=== PATIENT | male | born 1950 | race Caucasian/White ===

== ENCOUNTER 2018-11-11 04:50 | Inpatient (IN) ==
[2018-11-05 15:41] LABS: Appearance,Urine CLEAR; Bilirubin,Urine NEG (NEG); Color,Urine YELLOW; Glucose,Urine (UA) NEGATIVE (NEG); Leukocyte Esterase,Urine NEG /uL (NEG); Protein,Urine NEG (NEG); Specific Gravity,Urine 1.018 (1.000-1.035); Urine Blood NEG mg/dL (<0.03); Urobilinogen,Urine NEG (NEG)
[2018-11-05 18:34] LABS: Basophils # (Auto) 0.1 K/mcL (0.0-0.3); Basophils % (Auto) 0.8 % (0.0-2.0); Eosinophils # (Auto) 0.1 K/mcL (0.0-0.7); Eosinophils % (Auto) 1.4 % (0.0-7.0); Granulocytes % (Auto) 64.8 % (38.0-78.0); Lymphocytes # (Auto) 1.6 K/mcL (1.5-4.8); Lymphocytes % (Auto) 22.7 % (15.5-49.0); Mean Cell Volume 86.4 fL (80.0-100.0); Mean Corpuscular HGB Conc 32.3 g/dL (31.0-36.0); Monocytes # (Auto) 0.7 K/mcL (0.1-0.9); Monocytes % (Auto) 10.3 % (1.0-12.0); Platelet Count 207 K/mcL (140-440); RBC 5.69 M/mcL (4.50-5.90); Red Cell Distribution Width 14.6 % (11.5-14.5)
[2018-11-05 19:09] LABS: Estimated Average Glucose(eAG) 111 mg/dL; Hemoglobin A1C 5.5 % HGB (4.0-6.0)
[2018-11-05 19:12] LABS: Blood Urea Nitrogen 20 mg/dl (8-23)
[2018-11-11] MEDS ORDERED: oxyCODONE 10 MG TAB.ER.12H PO SCH (07:00)
[2018-11-11] MEDS ORDERED: PREGABALIN 75 MG CAPSULE PO SCH (07:00)
[2018-11-11] MEDS ORDERED: CELECOXIB 200 MG CAPSULE PO SCH (07:00)
[2018-11-11] MEDS ORDERED: ceFAZolin 1 GM VIAL IV SCH (07:00)
[2018-11-11] MEDS ORDERED: HEPARIN 20,000 UNIT/ML VIAL IR ONE (07:28)
[2018-11-11] MEDS ORDERED: DEXAMETHASONE 10 MG/ML VIAL IV ONE (07:50)
[2018-11-11] MEDS ORDERED: LIDOCAINE HCL/PF 100 MG/5 ML SYRINGE IV ONE (07:50)
[2018-11-11] MEDS ORDERED: MIDAZOLAM 5 MG/5 ML VIAL IV ONE (07:50)
[2018-11-11] MEDS ORDERED: ePHEDrine 50 MG/ML AMPUL IV ONE (07:50)
[2018-11-11] MEDS ORDERED: TRANEXAMIC ACID 1,000 MG/10 ML VIAL IV ONE ×2 (07:50→09:27)
[2018-11-11] MEDS ORDERED: ONDANSETRON 4 MG/2 ML VIAL IV ONE (07:50)
[2018-11-11] MEDS ORDERED: PROPOFOL 200 MG/20 ML VIAL IV ONE (07:50)
[2018-11-11] MEDS ORDERED: diphenhydrAMINE 50 MG/ML VIAL IV PRN (09:01)
[2018-11-11] MEDS ORDERED: FLUMAZENIL 0.1 MG/ML ML IV PRN (09:01)
[2018-11-11] MEDS ORDERED: ACETAMINOPHEN 1,000 MG/100 ML BOTTLE IV ONE (09:01)
[2018-11-11] MEDS ORDERED: fentaNYL 100 MCG/2 ML VIAL IV PRN (09:01)
[2018-11-11] MEDS ORDERED: IPRATROPIUM/ALBUTEROL 3 ML AMPUL.NEB NEB PRN (09:01)
[2018-11-11] MEDS ORDERED: PROMETHAZINE 25 MG/ML VIAL IV PRN (09:01)
[2018-11-11] MEDS ORDERED: NALOXONE HCL 0.4 MG/ML VIAL IV PRN (09:01)
[2018-11-11] MEDS ORDERED: MEPERIDINE 25 MG/ML SYRINGE IV PRN (09:01)
[2018-11-11] MEDS ORDERED: ONDANSETRON 4 MG/2 ML VIAL IV PRN ×2 (09:01→09:27)
[2018-11-11] MEDS ORDERED: LACTATED RINGERS 250 ML IV PRN (09:01)
[2018-11-11] MEDS ORDERED: LACTATED RINGERS 1,000 ML IV SCH (09:15)
[2018-11-11] MEDS ORDERED: MAGNESIUM HYDROXIDE 30 ML ORAL.SUSP PO PRN (09:27)
[2018-11-11] MEDS ORDERED: KETOROLAC 30 MG/ML VIAL IV PRN (09:27)
[2018-11-11] MEDS ORDERED: BISACODYL 10 MG SUPP.RECT PR PRN (09:27)
[2018-11-11] MEDS ORDERED: HYDROmorphone 2 MG/ML VIAL IV PRN (09:27)
[2018-11-11] MEDS ORDERED: BENZOCAINE/MENTHOL 1 LOZENGE PO PRN (09:27)
[2018-11-11] MEDS ORDERED: POLYETHYLENE GLYCOL 3350 17 GM PACKET PO PRN (09:27)
[2018-11-11] MEDS ORDERED: FLEETS ADULT ENEMA PR PRN (09:27)
--- NOTE | 2018-11-11 09:27 | Brief Operative Note ---
Date of procedure: 11/11/18 Pre-op diagnosis: Right hip severe DJD Post-op diagnosis: same Procedure: Right anterior total hip arthroplasty Grafts/Implants: Yes (Depuy 7 STD stem, +1.5 36 delta head, 58 cup, neutral altrx liner) Anesthesia: spinal, GLMA Findings: severe arthritis Complications: none Surgeon: Russell eVlazquez Psychologist Personnel: Steven Fiore Estimated blood loss (cc): 200 Specimens Removed/Pathology: none sent Condition: stable Disposition: PACU
--- NOTE | 2018-11-11 10:10 | Operative Note ---
DATE OF OPERATION: 11/11/2018 PREOPERATIVE DIAGNOSIS: Right hip severe osteoarthritis. POSTOPERATIVE DIAGNOSIS: Right hip severe osteoarthritis. PROCEDURE PERFORMED: Right anterior total hip arthroplasty placing a DePuy Actis size 7 standard offset femoral stem; a +1.5, 36 mm delta ceramic head ball with a 58 three-hole [place] cup and a neutral AltrX liner. SURGEON: Russell Velazquez M.D. COUNTER INTELLIGENCE: Hector Fiore PA-C. ANESTHESIA: Spinal plus general. DRAINS: None. SPECIMENS: Femoral head which was given to the patient. BLOOD LOSS: 200 mL. COMPLICATIONS: None. POSTOPERATIVE CONDITION: Stable. INDICATIONS FOR SURGERY: This is a 68-year-old male who has had progressive worsening severe right hip pain. Radiographs showed [id number] osteoarthritis. FINDINGS AT SURGERY: As above. Post implantation showed good component position with equalization of leg length and offset. PROCEDURE IN DETAIL: The patient had been seen preoperatively and informed consent had been obtained after discussion of risks and benefits of surgery. Risks including, but not limited to, bleeding, possibly requiring transfusion; infection, possibly requiring implant removal and prolonged IV antibiotics; injury to nerves, blood vessels, and other surrounding structures; anesthetic risks; incomplete or no resolution of symptoms; leg length discrepancy; dislocation; DVT and pulmonary embolus risks; and the possibility of needing revision joint surgery. He understood these risks and wished to proceed. Correct operative site was marked, and the patient received spinal anesthesia. He was then taken to the operating room and LMA general given. He was carefully positioned on the fracture table, and the right hip and groin were then carefully prepped and draped in normal sterile fashion, and a time-out was performed verifying patient name, operative site, and plan. Ioban was used to cover all skin surfaces and then a standard anterior approach incision was made with a scalpel through skin and subcutaneous tissue. Hemostasis was obtained with Bovie cautery. Blunt dissection was taken down on the tensor fascia and then this was undermined circumferentially. Irrisept was irrigated and a ring retractor placed. Tensor fascia was incised in line with muscle fibers with a scalpel and then blunt dissection taken medial to the muscle belly. Blunt cobra retractors were placed on the superior and inferior neck. Circumflex vessels were coagulated and cut and vastus fascia split distally. Anterior capsulectomy was performed as well as capsule releases and then a femoral corkscrew was placed in the femoral head. Osteotome was used under fluoroscopy to identify our neck cut and then oscillating tip saw was used to make our neck cut. He did have a prominent anterior osteophyte that made removing the head difficult, so I went ahead and took a second cut off the femoral neck, a napkin ring, and then removed this which allowed us to remove the femoral head much easier. We then exposed the acetabulum and what remained of labrum was excised circumferentially. The osteophyte was removed off of the anterior acetabulum with a curved osteotome. We then removed soft tissue from the floor of the acetabulum with Bovie and then reaming began, initially directly medializing to the tear drop, and then increasing reamer size and angle done under fluoroscopy. It took up to a 57 reamer to get rim ream. We opened a three-hole 58 cup. The acetabulum was irrigated with Irrisept and then after a minute pulse lavaged with saline. The cup was then impacted with the [id number] at approximately 40 degrees of inclination and 25 degrees of anteversion. We did get excellent press fit. The center hole cover was then placed. We did a final removal of osteophytes inferiorly with a curved osteotome and then the 36 liner was carefully aligned and impacted. We carefully verified all tabs were flush after impaction. We then removed traction and externally rotated the leg. Capsule release was taken around the medial neck and continued posteriorly. The leg was then extended and adducted and capsule released taken out to the greater trochanter. Femur was then prepared with box osteotome and then awl was used to identify trajectory of the canal. [place]geur and rasp were used to lateralize and then we sequentially broached up to a size 6. This seated below our neck cut. We calcar planed down and then trialed a standard offset neck with a +1.5 head ball. Hip reduced without excessive tension. AP pelvis was taken under fluoroscopy to verify neutral rotation and then AP of the nonoperative and operative hips were taken and overlaid. Leg length and offset were good. The stem appeared slightly undersized. We dislocated and re-exposed the proximal femur. I was able to impact the 6 down below the neck cut, so we went ahead and went up to a size 7 which seated right at our neck cut. We then removed the trial. A definitive implant was opened. Irrisept was irrigated down the canal, after a minute pulse lavaged with saline, and then the 7 stem Actis standard offset was impacted down until the collar was on the medial neck. We then opened a 36, 1.5 head ball. The stem was carefully cleaned and dried and then the head ball briskly impacted with multiple blows of the mallet. The hip was then reduced. Final fluoro images were saved and printed. We irrigated with Irrisept and after a minute pulse lavaged with saline. Tensor fascia was then closed with two running #1 Vicryl stitches. Ring retractor was removed. Irrisept irrigated again and after a minute pulse lavaged with saline. Fat was tacked to fascia with Vicryl and then 2-0 Monocryl for subcutaneous and brad for skin. Xeroform and sterile dressing were applied. The patient was then awakened, extubated, and transferred to recovery in stable condition. [email or web address]:vito Job ID: [id number] Doc ID: [id number] Russell Velazquez MD
--- NOTE | 2018-11-11 10:35 | XRay Report ---
CLINICAL INFORMATION: Post-op Total Hip COMPARISON: None. FINDINGS: Right total hip prosthesis is in anatomic alignment. Both SI left hip are normal in width and alignment. 8 mm millimeter ossification in the lateral left periacetabular region. Soft tissue swelling over the surgical site seen as expected IMPRESSION: Negative Interpreted and Authenticated by: Joel Villa 11/11/18
[2018-11-11] MEDS: 0.9 % SODIUM CHLORIDE 1,000 ML IV SCH ×2 (11:51→21:19)
[2018-11-11] MEDS: HYDROcodone/APAP 10/325MG TABLET PO PRN ×4 (12:51→23:51)
--- NOTE | 2018-11-11 16:12 | XRay Report ---
CLINICAL INFORMATION: right total hip anterior COMPARISON: None. FINDINGS: Multiple digital images are submitted. Final image shows right total hip prostheses is anatomically aligned. No osseous abnormality. Soft tissues normal IMPRESSION: Right total hip prostheses - anatomically aligned. Interpreted and Authenticated by: Joel Villa 11/11/18
[2018-11-11] MEDS: ceFAZolin 1 GM VIAL IV SCH ×2 (16:37→22:29)
[2018-11-11] MEDS: 0.9 % SODIUM CHLORIDE 10 ML SYRINGE IV SCH ×2 (16:50→20:24)
[2018-11-11] MEDS: DOCUSATE SODIUM 100 MG CAPSULE PO SCH (20:21)
[2018-11-11] MEDS: ASPIRIN 325 MG ENTERIC COATED TABLET PO SCH (20:21)
[2018-11-11] MEDS ORDERED: SENNOSIDES 1 TABLET PO SCH (21:00)
[2018-11-12] MEDS: 0.9 % SODIUM CHLORIDE 1,000 ML IV SCH ×2 (02:13→09:53)
[2018-11-12] MEDS: HYDROcodone/APAP 10/325MG TABLET PO PRN ×2 (05:24→12:21)
[2018-11-12] MEDS: 0.9 % SODIUM CHLORIDE 10 ML SYRINGE IV SCH (05:24)
--- NOTE | 2018-11-12 07:50 | Discharge Summary ---
Providers - Providers Patient information: Note initiated : 11/12/18 at 7:48 am Service Date, if different from initiated Date: [] Patient: Michel Fulton 68 y/o M admitted on 11/11/18 for Right Total Hip Arthroplasty. Chief Complaint: [] Discharge date: 11/12/18 Hospitalization Hospital course: Pt was admitted for a R Total hip arthroplasty. Pt admitted on day of procedure. Was transferred to the floor for IV pain meds, IV abx, and PT. Pt spent one night on the floor prior to discharge to home. Will take ASA for DVT prophylaxis. Will f/u at [facility] in 2 weeks. Discharge diagnosis: R hip OA Exam - Exam Clean and dry: Yes Weight bearing status: as tolerated Ortho Discharge - [facility] - Patient Instructions Diet: Regular Diet Activity: activity as tolerated Total Hip Protocol: Follow activity instructions as provided by Physical Therapy. Dressing Care: May shower in 2 days - Follow Up Plan Disposition: Home, Self-Care Prognosis: Good Rehab Potential: Good Overall status at discharge: patient is progressing back to baseline - Orders For Discharge Prescriptions: Aspirin [Ecotrin] 325 mg PO BID #60 tab.ec HYDROcodone/APAP 10/325MG [Alice 10-325Mg] 1 - 2 tab PO Q4HP PRN #75 tab PRN Reason: Pain Level 3-6 Pending Studies Resuscitation Status Full Code Diet Regular Diet Start FriNov 11 928 Hydrocodone Bitart/Acetaminophen (Alice 10/325mg) 0 tab PO Q4HP PRN PRN Reason: PAIN LEVEL 3-6 Last Admin: 11/12/18 05:24 Dose: 2 tab Documented by: Admin: 11/11/18 23:51 Dose: 2 tab Documented by: Admin: 11/11/18 20:21 Dose: 2 tab Documented by: Admin: 11/11/18 16:48 Dose: 2 tab Documented by: Admin: 11/11/18 12:51 Dose: 1 tab Documented by: ISIAH Aspirin (Ecotrin) 325 mg PO BID COUNTS INCLUDE 234 BEDS AT THE [facility] Last Admin: 11/11/18 20:21 Dose: 325 mg Documented by: LIZZEHT Docusate Sodium (Colace) 100 mg PO BID COUNTS INCLUDE 234 BEDS AT THE [facility] Last Admin: 11/11/18 20:21 Dose: 100 mg Documented by: LIZZETH Sodium Chloride (Sodium Chloride 0.9%) 1,000 mls @ 125 mls/hr IV .Q8H COUNTS INCLUDE 234 BEDS AT THE [facility] Last Admin: 11/12/18 02:13 Dose: Not Given Documented by: Admin: 11/11/18 21:19 Dose: 125 mls/hr Documented by: Infusion: 11/11/18 19:51 Dose: 125 mls/hr Documented by: Admin: 11/11/18 11:51 Dose: 125 mls/hr Documented by: ISIAH Senna (Senokot) 2 tab PO HS COUNTS INCLUDE 234 BEDS AT THE [facility] Last Admin: 11/11/18 20:21 Dose: 2 tab Documented by: LIZZETH Sodium Chloride (Saline Flush) 10 ml IV Q8 COUNTS INCLUDE 234 BEDS AT THE [facility] Last Admin: 11/12/18 05:24 Dose: 10 ml Documented by: Admin: 11/11/18 20:24 Dose: Not Given Documented by: Admin: 11/11/18 16:50 Dose: Not Given Documented by: ISIAH Shift Summary 11/12/18 04:36 Shift Summary by Robert Pagan Pt has rested fairly well tonight. Up AMB in [place] x2, as well as to & from BR - gait stable w/ FWW & SBA. Voided x2 - 1st void 300ml w/PVR scan 300ml, then 2nd void 275ml w/ 407ml PVR @ 0210. RT hip pain well controlled w/ Alice 10 (2) PO - last dose @ 2355, & Ice PK - will give another dose Alice by 0600. No N/V. NS infusing to his LT F/A @ 125ml/hr. RT ant hip dressing - C,.D,I. AV boots on when in bed. VS - WNL on R.A.. He is A&O x4, calm, pleasant, & cooperative. Initialized on 11/12/18 04:36 - END OF NOTE
[2018-11-12] MEDS ORDERED: LISINOPRIL 5 MG TABLET PO SCH (09:00)
[2018-11-12] MEDS: ASPIRIN 325 MG ENTERIC COATED TABLET PO SCH (09:49)
[2018-11-12] MEDS: DOCUSATE SODIUM 100 MG CAPSULE PO SCH (09:49)
== END 2018-11-12 12:45 | disposition home or self-care (01) | DRG 470 ==
LOC: MEDSUR 04:50
PROVIDERS: ADMIT Orthopaedic Surgery; ATTEND Orthopaedic Surgery